=== PATIENT | female | born 1970 | race Caucasian/White ===

== ENCOUNTER → 2023-09-11 15:38 | Outpatient (REF) | payer OTHER, SELFPAY | LOC: HWRAD 15:38 | PROVIDERS: ATTENDING PHYSICIAN Chiropractor; FAMILY PHYSICIAN Physician Assistant Medical | DX: M99.02 Segmental and somatic dysfunction of thoracic region (principal); M62.40 Contracture of muscle, unspecified site; M54.50 Low back pain, unspecified; M99.03 Segmental and somatic dysfunction of lumbar region | CPT/HCPCS: 72070; 72110 ==

== ENCOUNTER → 2023-09-22 11:14 | Outpatient (REF) | payer OTHER, SELFPAY | LOC: HWRAD 11:14 | PROVIDERS: ATTENDING PHYSICIAN Chiropractor | DX: M54.12 Radiculopathy, cervical region (principal); M62.40 Contracture of muscle, unspecified site; M99.01 Segmental and somatic dysfunction of cervical region | CPT/HCPCS: 72052 ==